=== PATIENT | female | born 1960 | race Caucasian/White ===

== ENCOUNTER 2016-04-25 07:40 | Day surgery (SDC) | payer OTHER ==
[2016-04-25 08:34] VITALS: BP 137/82; PULSE 63; RESP 16; TEMP 97.6; O2SAT 92
[2016-04-25 09:43] VITALS: BP 121/79; PULSE 98; RESP 18; TEMP 98.4; O2SAT 99
[2016-04-25] MEDS ORDERED: LIDOCAINE HCL 1% PF 30 ML VIAL ONE (09:47)
[2016-04-25 10:03] VITALS: BP 125/77; PULSE 99; RESP 18; O2SAT 95
--- NOTE | 2016-04-25 10:57 | RADRPT ---
EXAM DATE/TIME: 04/25/2016 08:19 [facility] COMPARISON: No previous studies available for comparison. EXTERNAL COMPARISON: [facility], CT ABDOMEN & PELVIS W CONTRAST, Mar 14 2016. INDICATIONS : Ascites. MEDICAL HISTORY : Arthritis. SURGICAL HISTORY : Vulvar surgery. ENCOUNTER: Initial ACUITY: 3 days PAIN SCORE: 0/10 LOCATION: Right lower quadrant FLUID: Total volume of 4200 cc of clear, yellow fluid was removed. Fluid was sent to lab for ordered studies. Post procedure scanning reveals no hematoma or other complication. TECHNIQUE: 1. Ultrasound guidance for abdominal paracentesis. 2. Paracentesis. The risks, benefits, and alternatives to ultrasound guided paracentesis were explained to the patient in detail including the risk of bleeding and infection. Written and verbal informed consent was obt ained. With the patient on the ultrasound table, ultrasound imaging was used to select the most appropriate approach for paracentesis. Overlying skin was prepped and draped in the usual sterile fashion and wi th a local anesthetic, a dermatotomy was made with an 11 blade scalpel. A 6 Portuguese [id number]-B-xiowjnzq ca theter was introduced into the peritoneal cavity and fluid was collected. The patient tolerated the procedure well and left the ultrasound suite in stable condition. CONCLUSION: Uncomplicated ultrasound guided paracentesis. Cytology and ordered studies are pending. Jose Patiño MD FACR on April 25, 2016 at 10:55 Board Certified Radiologist. This report was verified electronically.
== END 2016-04-25 10:20 | disposition home or self-care (01) ==
LOC: HRAD 07:40 → HRIP 07:43 → HRAD 10:20
PROVIDERS: ATTEND Obstetrics & Gynecology Gynecologic Oncology
DX: R18.8 Other ascites (principal); M19.90 Unspecified osteoarthritis, unspecified site
CPT/HCPCS: 49083; 88112; 88305; C1729

== ENCOUNTER 2016-05-06 08:40 | Day surgery (SDC) | payer OTHER ==
[~2016-05-06] VITALS: Ht 157.5 cm; Wt 50.0 kg
[2016-05-06 09:14] VITALS: BP 136/85; PULSE 104; RESP 20; TEMP 98.1; O2SAT 96
[2016-05-06] MEDS ORDERED: SODIUM CHLOR 0.9% 1000 ML IV SCH (10:00)
[2016-05-06 10:02] LABS: AUTOMATED NEUTROPHIL # 13.3 TH/MM3 (1.8-7.7); BASOPHIL # 0.1 TH/MM3 (0-0.2); BASOPHIL % 0.8 % (0.0-2.0); EOSINOPHIL # 0.1 TH/MM3 (0-0.4); EOSINOPHIL % 0.5 % (0.0-4.0); HEMATOCRIT 39.4 % (35.0-46.0); HEMO FLAGS DIFF FINAL; LYMPH % 12.1 % (9.0-44.0); MEAN CELL VOLUME 86.6 FL (80.0-100.0); MEAN CORPUSCULAR HEMOGLOBIN 28.8 PG (27.0-34.0); MEAN CORPUSCULAR HGB CONC 33.3 % (32.0-36.0); MONO % 7.3 % (0.0-8.0); NEUT % 79.3 % (16.0-70.0); PLATELET COUNT 892 TH/MM3 (150-450); RED BLOOD COUNT 4.55 MIL/MM3 (4.00-5.30); RED CELL DISTRIBUTION WIDTH 15.1 % (11.6-17.2); WHITE BLOOD COUNT 16.8 TH/MM3 (4.0-11.0)
[2016-05-06 10:23] LABS: APTT (PATIENT) 28.4 SEC (24.3-30.1); PROTHROMBIN TIME - PATIENT 11.3 SEC (9.8-11.6)
[2016-05-06] MEDS ORDERED: LIDOCAINE 1%/EPINEPHrine 1:100,000 SOLN 20 ML VIAL ONE (10:37)
[2016-05-06] MEDS ORDERED: MIDAZOLAM HCL 5 MG/5 ML VIAL ONE (10:52)
[2016-05-06] MEDS ORDERED: fentaNYL CITRATE 250 MCG/5 ML AMP ONE (10:52)
[2016-05-06] MEDS ORDERED: ONDANSETRON HCL 4 MG/2 ML VIAL ONE (11:10)
[2016-05-06 12:00] VITALS: BP 108/59; PULSE 91; RESP 16; TEMP 98.1; O2SAT 100
[2016-05-06 12:15] VITALS: BP 101/70; PULSE 104; RESP 16; O2SAT 92
[2016-05-06 12:45] VITALS: BP 115/69; PULSE 111; RESP 16; O2SAT 93
[2016-05-06] MEDS ORDERED: oxyCODONE/ACETAMINOPHEN 5 MG/325 MG TAB PO PRN (12:45)
[2016-05-06 13:15] VITALS: BP 104/66; PULSE 100; RESP 16; O2SAT 93
--- NOTE | 2016-05-06 13:43 | RADRPT ---
EXAM DATE/TIME: 05/06/2016 11:23 [facility] COMPARISON: No previous studies available for comparison. INDICATIONS : Omental caking SEDATION TIME: 30 minutes BIOPSY SITE: Left 0mental MEDICATION(S): 1.) 2 mg midazolam (Versed) IV 2.) 75 mcg fentanyl (Sublimaze) IV DEVICE(S): 1.) 18 gauge Temno core biopsy needle MEDICAL HISTORY : Arthritis. SURGICAL HISTORY : None. ENCOUNTER: Initial ACUITY: 2 months PAIN SCORE: 0/10 LOCATION: Abdomen A total of three core specimen(s) were obtained and sent to the laboratory for pathologic evaluation. PROCEDURE: 1. CT guided pelvicOmental biopsy. 2. Conscious sedation with continuous EKG and oximetry monitoring. Prior to the procedure informed consent was obtained. Any appropriate prior imaging studies were rev iewed. Using automated exposure control and adjustment of the mA and/or kV according to patient size, radiat ion dose was kept as low as reasonably achievable to obtain optimal diagnostic quality images. The site was prepped in a sterile fashion. Full sterile technique was used, including cap, mask, staci rile gloves and gown and a large sterile sheet. Hand hygiene and 2% chlorhexidine and/or betadine/al cohol prep was utilized per protocol for cutaneous antisepsis. The skin and subcutaneous tissues wer e infiltrated with local anesthetic solution. With CT guidance the previously identified target was localized. Biopsy was performed using the presc ribed needle as above. Adequate hemostasis was obtained with compression at the puncture site. Follow-up CT scan reveals no hemorrhage. The patient tolerated the procedure well and there were no complications. The patient was returned to the Radiology Outpatient Unit in stable condition. CONCLUSION: Uncomplicated CT guided biopsy. Niranjan Escobar MD on May 06, 2016 at 13:41 Board Certified Radiologist. This report was verified electronically.
[2016-05-06 13:45] VITALS: BP 110/69; PULSE 104; RESP 16; O2SAT 93
== END 2016-05-06 13:54 | disposition home or self-care (01) ==
LOC: HRAD 08:40 → HRIP 08:40 → HRAD 13:54
PROVIDERS: ATTEND Obstetrics & Gynecology Gynecologic Oncology
DX: R19.00 Intra-abdominal and pelvic swelling, mass and lump, unspecified site (principal); R18.8 Other ascites; M19.90 Unspecified osteoarthritis, unspecified site
CPT/HCPCS: 49180; 77012; 85025; 85610; 85730; 88305; 88341; 88342; 99151; J2250; J2405; J3010

== ENCOUNTER 2016-05-28 06:00 | Day surgery (SDC) | payer OTHER ==
[~2016-05-28] VITALS: Ht 154.9 cm; Wt 51.4 kg
[2016-05-28] MEDS ORDERED: HYDR-3516 PO (06:39)
[2016-05-28 06:43] VITALS: BP 139/88; PULSE 98; RESP 20; TEMP 98.8; O2SAT 94
[2016-05-28] MEDS ORDERED: POVIDONE IODINE 5% (ANTISEPSIS KIT) 4 APPLICATIONS EACH NARE SCH (07:30)
[2016-05-28] MEDS ORDERED: CHLORHEXIDINE GLUCONATE 2 % 1 PACK (2 CLOTHS) TOPICAL SCH (07:30)
[2016-05-28] MEDS ORDERED: VANCOMYCIN 1000 MG/NS 250 ML - implanted port/tunneled catheter IV SCH ×2 (07:30)
[2016-05-28] MEDS ORDERED: SODIUM CHLORIDE 0.9% 1000 ML IV SCH (07:30)
[2016-05-28] MEDS ORDERED: MIDAZOLAM HCL 5 MG/5 ML VIAL ONE (07:59)
[2016-05-28] MEDS ORDERED: fentaNYL CITRATE 250 MCG/5 ML AMP ONE (07:59)
[2016-05-28] MEDS ORDERED: ONDANSETRON HCL 4 MG/2 ML VIAL ONE (08:09)
[2016-05-28] MEDS ORDERED: LIDOCAINE 1%/EPINEPHrine 1:100,000 SOLN 20 ML VIAL ONE (08:20)
[2016-05-28 09:30] VITALS: BP 111/70; PULSE 100; RESP 18; TEMP 98.4; O2SAT 92
--- NOTE | 2016-05-28 09:31 | PD.RAD ---
Post Procedure Progress Note Pre Procedure Diagnosis: (1) Ovarian cancer Post Procedure Diagnosis: (1) Ovarian cancer Procedure Date: May 28, 2016 Supervising Radiologist: Brian Tran Anesthesia: Local, Conscious Sedation Plan of Activity Patient to Unit: ROPU Patient Condition: Good See PACS Report for procedural detail/treatment Central Venous Access Device Procedure 1 Right Internal Jugular Infusaport Placement single lumen Israeli: 8 Brian Tran MD May 28, 2016 09:31
[2016-05-28 09:45] VITALS: BP 111/80; PULSE 107; RESP 19; O2SAT 95
--- NOTE | 2016-05-28 10:08 | RADRPT ---
EXAM DATE/TIME: 05/28/2016 08:22 [facility] COMPARISON: No previous studies available for comparison. INDICATIONS : Patient presents with ovarian cancer in need of port placement for chemotherapy treatment. MEDICAL HISTORY : Ovarian cancer SURGICAL HISTORY : Paracentesis Veurial wart removal ENCOUNTER: Initial ACUITY: 1 week PAIN SCORE: 7/10 LOCATION: Inguinal FLUORO TIME: 0.3 minutes IMAGE SERIES: 1 SEDATION TIME: 45 minutes ACCESS: Right internal jugular vein SEDATION: 1.) 4 mg midazolam (Versed) IV 2.) 200 mcg fentanyl (Sublimaze) IV 3.) 4mg ondansetron (Zofran) IV Prophylactic antibiotics were administered with appropriate pre-procedure timing. Vancomycin within 2 hours of procedure, Ancef (or alternative) within 1 hour of procedure. DEVICE: 1. 8 And[place]ran single lumen Bard Power Port PROCEDURE : 1. Continuous pulse oximetry and EKG monitoring. 2. Intravenous conscious sedation. 3. Ultrasound guidance for venous access. 4. Fluoroscopic guided implantable central venous port placement. The patient was placed supine. The neck was prepped in sterile fashion. Full sterile technique was u sed, including cap, mask, sterile gloves and gown, and a large sterile sheet. Hand hygiene and 2% ch lorhexidine Betadine was utilized per protocol for cutaneous antisepsis with appropriate dry time for site. The skin and subcutaneous tissues were infiltrated with local anesthetic solution. Under direct ultrasound guidance, central venous access was accomplished in the targeted vessel. The ultrasound images depicting access guidance were stored and saved to PACS for permanent record. A s ubcutaneous pocket was created using blunt dissection. The port was introduced to the pocket. The c atheter tubing was fed through a subcutaneous tunnel to the venotomy site. The catheter tubing was c ut to a suitable length and then was introduced through a valved Peel-Away sheath and positioned with catheter tubing tip at the cavo-atrial junction level. The pocket incision was closed with subcutic ular Vicryl suture. Steri-Strips were applied. The port was flushed and locked with heparin solutio n per protocol. Sterile dressing was applied to the site. The patient tolerated the procedure well. Conscious sedation was performed with the prescribed dosages and duration as above in the presence of an independent trained radiology nurse to assist in the monitoring of the patient. EKG and oximetry remained stable throughout the procedure. The patient tolerated the procedure well and there were no complications. The patient was sent to post anesthesia recovery in stable condition. CONCLUSION: Uncomplicated ultrasound and fluoroscopic guided implanted central venous port catheter placement as described in detail above. An 8 Andorran Power port was placed. Brian Tran MD on May 28, 2016 at 10:06 Board Certified Radiologist. This report was verified electronically.
[2016-05-28 10:15] VITALS: BP 115/71; PULSE 97; RESP 18; O2SAT 97
[2016-05-28 10:45] VITALS: BP 114/70; PULSE 106; RESP 19; O2SAT 96
== END 2016-05-28 11:20 | disposition home or self-care (01) ==
LOC: HROP 06:00 → HRIP 06:00 → HROP 11:20
PROVIDERS: ATTEND Obstetrics & Gynecology Gynecologic Oncology
DX: Z45.2 Encounter for adjustment and management of vascular access device (principal); C56.9 Malignant neoplasm of unspecified ovary
CPT/HCPCS: 36561; 76937; 77001; 99152; 99153; C1788; J1642; J2250; J2405; J3010; J3370; J7030; J7050

== ENCOUNTER 2016-06-09 07:28 | Day surgery (SDC) | payer OTHER ==
[~2016-06-09 07:28] MED LIST: HYDR-3516 PO
[2016-06-09 08:12] VITALS: BP 123/82; PULSE 95; RESP 14; TEMP 97.2; O2SAT 96
[2016-06-09] MEDS ORDERED: ADDE10 PO (08:17)
[2016-06-09] MEDS ORDERED: MULT-135 PO (08:17)
[2016-06-09 10:15] VITALS: BP 109/74; PULSE 93; RESP 16; TEMP 98.4; O2SAT 97
[2016-06-09 10:30] VITALS: BP 115/64; PULSE 96; RESP 16; O2SAT 97
[2016-06-09 10:45] VITALS: BP 114/69; PULSE 97; RESP 16; O2SAT 96
--- NOTE | 2016-06-09 15:27 | RADRPT ---
EXAM DATE/TIME: 06/09/2016 08:20 [facility] COMPARISON: No previous studies available for comparison. INDICATIONS : Ascites. Ovarian cancer. MEDICAL HISTORY : Paracentesis. Adenocarcinoma. SURGICAL HISTORY : Port placement. Omentum biopsy. ENCOUNTER: Subsequent ACUITY: 2 months PAIN SCORE: 0/10 LOCATION: Left lower quadrant FLUID: Total volume of 2,900 cc of clear, red fluid was removed. Fluid was discarded. Paracentesis was therapeutic only. Post procedure scanning reveals no hematoma or other complication. TECHNIQUE: 1. Ultrasound guidance for abdominal paracentesis. 2. Paracentesis. The risks, benefits, and alternatives to ultrasound guided paracentesis were explained to the patient in detail including the risk of bleeding and infection. Written and verbal informed consent was obt ained. With the patient on the ultrasound table, ultrasound imaging was used to select the most appropriate approach for paracentesis. Overlying skin was prepped and draped in the usual sterile fashion and wi th a local anesthetic, a dermatotomy was made with an 11 blade scalpel. A 6 Icelandic Fhu-K-jwnexich ca theter was introduced into the peritoneal cavity and fluid was collected. The patient tolerated the procedure well and left the ultrasound suite in stable condition. CONCLUSION: Uncomplicated ultrasound guided paracentesis. Oscar Yin MD on June 09, 2016 at 15:25 Board Certified Radiologist. This report was verified electronically.
== END 2016-06-09 11:00 | disposition home or self-care (01) ==
LOC: HRAD 07:28 → HRIP 07:32 → HRAD 11:00
PROVIDERS: ATTEND Obstetrics & Gynecology Gynecologic Oncology
DX: R18.8 Other ascites (principal); C56.9 Malignant neoplasm of unspecified ovary
CPT/HCPCS: 49083; C1729

== ENCOUNTER 2016-06-17 07:38 | Day surgery (SDC) | payer OTHER ==
[~2016-06-17 07:38] MED LIST changes: +ADDE10 PO; +MULT-135 PO
[2016-06-17 08:09] VITALS: BP 106/67; PULSE 106; RESP 14; TEMP 97.3; O2SAT 97
[2016-06-17 09:10] VITALS: BP 120/73; PULSE 93; RESP 16; TEMP 98.3; O2SAT 97
[2016-06-17 09:25] VITALS: BP 118/73; PULSE 93; RESP 16; O2SAT 97
[2016-06-17 09:40] VITALS: BP 122/75; PULSE 93; RESP 16; O2SAT 97
--- NOTE | 2016-06-17 13:02 | RADRPT ---
EXAM DATE/TIME: 06/17/2016 08:15 [facility] COMPARISON: No previous studies available for comparison. EXTERNAL COMPARISON: [facility], CT ABDOMEN & PELVIS W CONTRAST, Mar 14 2016. INDICATIONS : Ascites. Ovarian cancer. MEDICAL HISTORY : Carcinoma, ovarian. Ascites. Adenocarcinoma. SURGICAL HISTORY : Venirial warts removal. Pilonidal cyst. Paracentesis. Port placement. Omentum biopsy. ENCOUNTER: Subsequent ACUITY: 1 week PAIN SCORE: 10/10 LOCATION: Right lower quadrant FLUID: Total volume of 2,000 cc of clear, red fluid was removed. Fluid was discarded. Paracentesis was therapeutic only. Post procedure scanning reveals no hematoma or other complication. TECHNIQUE: 1. Ultrasound guidance for abdominal paracentesis. 2. Paracentesis. The risks, benefits, and alternatives to ultrasound guided paracentesis were explained to the patient in detail including the risk of bleeding and infection. Written and verbal informed consent was obt ained. With the patient on the ultrasound table, ultrasound imaging was used to select the most appropriate approach for paracentesis. Overlying skin was prepped and draped in the usual sterile fashion and wi th a local anesthetic, a dermatotomy was made with an 11 blade scalpel. A 6 Haitian Ogl-X-pbeetiaq ca theter was introduced into the peritoneal cavity and fluid was collected. The patient tolerated the procedure well and left the ultrasound suite in stable condition. CONCLUSION: Uncomplicated ultrasound guided paracentesis. Oscar Yin MD on June 17, 2016 at 13:00 Board Certified Radiologist. This report was verified electronically.
== END 2016-06-17 09:45 | disposition home or self-care (01) ==
LOC: HRAD 07:38 → HRIP 07:38 → HRAD 09:45
PROVIDERS: ATTEND Obstetrics & Gynecology Gynecologic Oncology
DX: R18.8 Other ascites (principal); C56.9 Malignant neoplasm of unspecified ovary
CPT/HCPCS: 49083; C1729

== ENCOUNTER 2016-09-23 15:16 | Observation (INO) | payer OTHER ==
[~2016-09-23] VITALS: Ht 154.9 cm; Wt 56.4 kg
[~2016-09-23 15:16] MED LIST changes: -ADDE10 PO; -MULT-135 PO
[2016-10-03] MEDS ORDERED: VITACAP7 PO (13:25)
[2016-10-23] MEDS ORDERED: SODIUM CHLORIDE FLUSH PRN IV FLUSH (05:45)
[2016-10-23] MEDS ORDERED: HEPARIN SODIUM - SQ 10,000 UNITS/ML VIAL SQ PRN (05:45)
[2016-10-23] MEDS ORDERED: POVIDONE IODINE 5% (ANTISEPSIS KIT) 4 APPLICATIONS EACH NARE PRN (05:45)
[2016-10-23] MEDS ORDERED: LACTATED RINGER'S 1000 ML IV PRN (05:45)
[2016-10-23] MEDS ORDERED: METOPROLOL TARTRATE 25 MG TAB PO PRN (05:45)
[2016-10-23] MEDS ORDERED: METRONIDAZOLE 500 MG/100 ML ISONTONIC SOLN IV PRN (05:45)
[2016-10-23] MEDS ORDERED: SODIUM CHLORID 0.9% 500 ML IV PRN (05:45)
[2016-10-23] MEDS ORDERED: CHLORHEXIDINE GLUCONATE 2 % 1 PACK (2 CLOTHS) TOPICAL PRN (05:45)
[2016-10-23] MEDS ORDERED: INSULIN HUMAN REGULAR 1,000 UNITS/10 ML VIAL SQ PRN (05:45)
[2016-10-23] MEDS ORDERED: LEVOFLOXACIN 500 MG PREMIX INJ 100 ML IV PRN (05:45)
[2016-10-23] MEDS ORDERED: APREPITANT 40 MG CAP ONE (06:40)
[2016-10-23] MEDS ORDERED: SUGAMMADEX SODIUM 200 MG/2 ML VIAL IV PUSH ONE ×2 (08:02)
[2016-10-23] MEDS ORDERED: ACETAMINOPHEN 1000 MG/100 ML 100 ML IV ONE (08:02)
[2016-10-23] MEDS ORDERED: HYDROmorphone HCL PF 2 MG/ML VIAL ONE (08:02)
[2016-10-23] MEDS ORDERED: ARTIFICIAL TEARS OPTH OINT 3.5 APPLIC/3.5 GM TUBO ONE (08:03)
[2016-10-23] MEDS ORDERED: SODIUM CHLORIDE FLUSH BID IV FLUSH SCH (09:00)
[2016-10-23] MEDS ORDERED: FAMOTIDINE 20 MG/2 ML VIAL ONE (09:02)
[2016-10-23] MEDS: LIDOCAINE 1%/EPINEPHrine 1:100,000 SOLN 50 ML VIAL INFIL ONE ×2 (09:05→09:09)
[2016-10-23] MEDS ORDERED: LIDOCAINE 1%/EPINEPHrine 1:100,000 SOLN 20 ML VIAL INFIL ONE (09:14)
[2016-10-23] MEDS ORDERED: PROPOFOL 200 MG/20 ML AMP IV ONE (12:00)
[2016-10-23] MEDS ORDERED: NORMOSOL R INJ 1,000 ML IV ONE (12:00)
[2016-10-23] MEDS ORDERED: ONDANSETRON HCL 4 MG/2 ML VIAL IV PUSH ONE (12:00)
[2016-10-23] MEDS ORDERED: PHENYLEPH/NS 1000 MCG/10 ML SYR IV ONE (12:00)
[2016-10-23] MEDS ORDERED: HYDROmorphone HCL PF 1 MG/ML VIAL IV ONE (12:00)
[2016-10-23] MEDS ORDERED: KETOROLAC TROMETHAMINE 60 MG/2 ML (IM) VIAL IM ONE (12:00)
[2016-10-23] MEDS ORDERED: VECURONIUM BROMIDE 20 MG VIAL IV ONE (12:00)
[2016-10-23] MEDS ORDERED: SODIUM CHLORIDE 0.9% FLUSH 10 ML FLUSH IV FLUSH PRN (12:45)
[2016-10-23] MEDS ORDERED: diphenhydrAMINE HCL 25 MG CAP PO PRN (12:45)
[2016-10-23] MEDS ORDERED: oxyCODONE/ACETAMINOPHEN 5 MG/325 MG TAB PO PRN (12:45)
[2016-10-23] MEDS ORDERED: LORazepam 0.5 MG TAB PO PRN (12:45)
[2016-10-23] MEDS: D5-1/2 NS + KCL 20 MEQ INJ 1,000 ML IV SCH ×2 (13:00→22:25)
[2016-10-23] MEDS ORDERED: *morphine SULFATE 8 MG/ML PERIprocedure ONLY ONE ×2 (13:08→13:52)
[2016-10-23] MEDS ORDERED: DO NOT ADM ANY ANTICOAGULANT DRUGS PRN (14:00)
[2016-10-23] MEDS ORDERED: KETOROLAC TROMETHAMINE 30 MG/ML (IVP) VIAL IVP SCH (14:00)
[2016-10-23 16:06] VITALS: BP 121/65; PULSE 84; RESP 17; TEMP 97.6; O2SAT 98
[2016-10-23] MEDS: ONDANSETRON HCL 4 MG/2 ML VIAL IVP PRN ×2 (16:28→22:25)
[2016-10-23] MEDS: KETOROLAC TROMETHAMINE 30 MG/ML (IVP) VIAL IVP SCH (16:44)
[2016-10-23] MEDS: oxyCODONE/ACETAMINOPHEN 5 MG/325 MG TAB PO PRN (18:44)
[2016-10-23 20:43] VITALS: BP 111/59; PULSE 85; RESP 18; TEMP 97.6; O2SAT 98
[2016-10-23] MEDS ORDERED: SODIUM CHLORIDE 0.9% FLUSH 10 ML FLUSH IV FLUSH SCH (21:00)
[2016-10-24] VITALS: BP 97/53; PULSE 79; RESP 16; TEMP 96.9; O2SAT 96
[2016-10-24 01:25] VITALS: O2SAT 95
[2016-10-24 04:43] VITALS: BP 102/59; PULSE 85; RESP 18; TEMP 97.2; O2SAT 97
[2016-10-24] MEDS: KETOROLAC TROMETHAMINE 30 MG/ML (IVP) VIAL IVP SCH ×3 (04:56→09:57)
[2016-10-24] MEDS: oxyCODONE/ACETAMINOPHEN 5 MG/325 MG TAB PO PRN ×2 (05:02→09:53)
[2016-10-24] MEDS ORDERED: HYDR-3516 PO (07:04)
[2016-10-24 07:18] LABS: AUTOMATED NEUTROPHIL # 8.5 TH/MM3 (1.8-7.7); BASOPHIL % 0.1 % (0.0-2.0); EOSINOPHIL % 0.1 % (0.0-4.0); HEMATOCRIT 34.7 % (35.0-46.0); HEMO FLAGS DIFF FINAL; LYMPH % 18.1 % (9.0-44.0); LYMPHOCYTE # 2.2 TH/MM3 (1.0-4.8); MEAN CORPUSCULAR HEMOGLOBIN 35.6 PG (27.0-34.0); MEAN CORPUSCULAR HGB CONC 33.9 % (32.0-36.0); MONO % 12.2 % (0.0-8.0); NEUT % 69.5 % (16.0-70.0); PLATELET COUNT 367 TH/MM3 (150-450); RED BLOOD COUNT 3.31 MIL/MM3 (4.00-5.30); RED CELL DISTRIBUTION WIDTH 15.5 % (11.6-17.2); WHITE BLOOD COUNT 12.2 TH/MM3 (4.0-11.0)
[2016-10-24 07:36] LABS: BICARBONATE 25.9 MEQ/L (21.0-32.0); POTASSIUM 3.8 MEQ/L (3.5-5.1)
[2016-10-24 08:00] VITALS: BP 109/65; PULSE 79; RESP 18; TEMP 98.1; O2SAT 98
[2016-10-24 11:06] VITALS: O2SAT 99
--- NOTE | 2016-10-25 18:48 | MP ---
cc: BE FOX M.D., KELLY L. MD DATE OF SURGERY 10/23/2016 PREOPERATIVE DIAGNOSIS 1. Ovarian cancer. 2. Status post neoadjuvant chemotherapy. POSTOPERATIVE DIAGNOSIS 1. Ovarian cancer. 2. Status post neoadjuvant chemotherapy. 3. Extensive intraperitoneal and pelvic adhesions. PROCEDURE Robotic-assisted laparoscopic En Bloc hysterectomy. Bilateral salpingo-oophorectomy, omentectomy, partial resection the gastrocolic ligament and tumor resection with a right ureteral lysis, resection of intraperitoneal tumor nodules, extensive lysis of adhesions. Left vulvar biopsy. SURGEON Sabrina Rene. BEAR KEEPER [place] assistant to the vice president. ANESTHESIA General endotracheal anesthesia. ESTIMATED BLOOD LOSS 100 cc. IV FLUIDS 1800 cc. URINE OUTPUT 300 cc. HISTORY This is a 56-year-old female who presented with extensive carcinomatosis, ascites. CA-125 elevated, greater than 9000. Biopsy confirmed adenocarcinoma of ovarian origin. She has completed neoadjuvant chemotherapy. Her CA-125 has dramatically responded consistent with the clinical improvement as the ascites has resolved. There has been a marked reduction in the palpable disease on physical examination. Her symptoms have improved and her most recent CA-125 I believe was approximately 29. She was seen recently in our office and seen again in the preop holding area today where findings are reviewed, the plan of surgical intervention is discussed. It is anticipated that there will still be measurable disease that is the focus of surgery, although, she has had a dramatic response to treatment. I am pleased with how well she is doing. The realistic expectation is that there will be persistent disease which will be removed to the extent possible at surgery and after she recovers from surgery additional chemotherapy would be recommended. She expressed good understanding and agreed to proceed. FINDINGS There had been a good and detectable response to chemotherapy. There are multiple filmy bands of adhesions that were suggestive of prior tumor that had responded. There were small miliary tumor implants on the visceral and ___ peritoneal surfaces and areas showing previous tumor that had responded. There still remained grossly visible tumor in the infracolic omentum as well as in the gastrocolic ligament. The distal omentum was fixed in the pelvis, adherent to the uterus and to the colon. The right ovary was approximately 6 cm in size, was densely adherent to the right pelvic sidewall, partially retroperitonealized. The ureter was densely adherent to the posterior lateral aspect of the ovary fixed between the ovary and the pelvic sidewall. The left ovary was also fixed to the pelvic sidewall, was only approximately 3 cm. The colon was densely adherent to the left pelvic sidewall, draped over the ovary and fixed through the posterior wall of the uterus with partial obliteration of the cul-de-sac. At the conclusion of the case all significant tumor had been removed, what remained were implants of tumor on the bowel or the liver surface ranging from 1 to 4 mm that were not thought safely amenable to resection but that all significant grossly visible tumor otherwise had been resected. The majority of the tumor burden was in the infracolic omentum, gastrocolic ligament and right ovary. A 2 cm pigmented slightly raised area on the right vulva. STATEMENT OF COMPLEXITY The complexity of the case was increased, a significant amount of time was spent lysing adhesions to restore normal anatomy and to accomplish surgical objectives, increasing the complexity of the case and modifier should be applied accordingly. PROCEDURE IN DETAIL She was taken to the operating room placed in dorsal lithotomy position after general endotracheal anesthesia was administered, time-out was undertaken. She was identified by sight recognition, hospital ID bracelet and the proposed procedure was reviewed and confirmed. She was carefully positioned in padded Juni stirrups. Her arms were padded and secured to the sides. She was further secured to the operating table with egg crate padding and tape in a cross chest over the shoulder fashion. All sites were noted to be properly aligned with no malalignments or pressure points. She was prepped and draped in sterile fashion, placed in lithotomy position. The cervix was grasped, uterine cavity was sounded, cervix was dilated and a small VCare manipulator was inserted and secured usual fashion. Shafer catheter placed in the bladder. She was returned to low lithotomy position, change of sterile gloves was undertaken. We completed draping in anticipation of laparoscopy, confirmed that an orogastric tube was in the stomach on suction. With manual elevation of the abdominal wall and direct laparoscopic visualization 5 mm cannula placed in the left upper quadrant and an atraumatic entry was confirmed. Carbon dioxide gas was insufflated and 12 mm cannula was placed in midline above the umbilicus and blunt and sharp dissection was used to take down some adhesions as a 12-mm cannula was placed in the right upper quadrant and an 8-mm cannula was placed in right upper quadrant, another 8 mm cannula in the left lateral quadrant and the original 5-mm cannula exchanged for an 8-mm cannula. The anatomy was surveyed with findings as described above as the distal omentum was stuck in the pelvis, she was placed in steep Trendelenburg position and blunt grasper used to fold the small bowel back on its mesenteric root and three Ray-Herb sponges were placed around the root of the small bowel mesentery. The adhesions were left in place initially to help facilitate dissection of the omentum. The robotic system brought into the operative field, attached in the usual fashion. Monopolar scissors, fenestrated bipolar forceps and Prograsp manipulators were placed in arms #1, 2 and 3 respectively and I took my place at the surgeon's console. Dissection was started near the hepatic flexure. The transverse colon was identified. Nonvascular attachments were taken down with sharp dissection. The vascular attachments between the transverse colon and the omentum were isolated, cauterized with bipolar cautery and transected. This dissection was carried along the transverse colon medially and then attention was directed towards the left upper quadrant. There is tumor that extended into the gastrocolic ligament and so the nonvascular attachments were isolated and the vascular attachments below the greater curvature of the stomach were isolated, cauterized and transected in a stepwise fashion and then dissection was continued toward the transverse colon where similarly the vascular pedicles were isolated, cauterized and transected as the gastrocolic ligament and the infracolic omentum were from the stomach and transverse colon. Dissection was completed centrally, dissecting the omentum off of the transverse colon. All sites were inspected, noted to be hemostatic. Attention was now directed toward the pelvis. The distal omentum was left adherent to the uterus but lysis of adhesion was carried out to free the omentum from its attachments to the colon. Sharp and blunt dissection were used to help gain access to the pelvis to mobilize the ileocecal region and to initiate pelvic dissection. Right round ligament was isolated, cauterized and transected as the anterior and posterior leafs of the broad ligament were opened. The right infundibulopelvic ligament was isolated. The ureter was noted to be densely adherent to the right ovarian mass as described above and so blunt and sharp dissection was used to free the ureter along its course in the pelvis to perform ureterolysis along its course in the pelvis and free it from the attachments of the tumor and similarly blunt and sharp dissection was used to free the ovary from its retroperitonealized fixed position and to elevate it as dissection was carried from proximal to distal with continued dissection in the cul-de-sac until the ovary could be elevated, from surrounding tissue, isolating the right utero-ovarian ligament. Further dissection distally allowed separation of the ureter from surrounding tissue. The posterior peritoneum on the uterus and cervix were opened with sharp dissection and posterior cul-de-sac adhesions were taken down and the right vesicouterine peritoneum was dissected off the lower uterine segment and cervix. Further dissection allowed skeletonization of the right uterine vessels which were isolated, cauterized and transected as were the cardinal, paracervical and uterosacral ligaments. The paravesical, pararectal spaces and obturator spaces were opened. There was a single enlarged lymph node approximately 2-2.5 cm in diameter in the region of the bifurcation of the external and internal iliac vessels. This lymph node was isolated with bipolar cautery and sharp dissection circumferentially freeing attachments, cauterizing small vascular attachments, circumferentially peeling the lymph node off of the external iliac vein and freeing up this lymph node which was placed on a Ray-Herb sponge and the right lower quadrant for later retrieval. Attention was directed toward the left side. Additional time was spent lysing adhesions to mobilize the colon, free its attachments from against the left pelvic sidewall and overlying the left pelvic sidewall structures and to free the adhesions from the cul-de-sac to mobilize the colon medially to gain access to the left pelvic sidewall. Left round ligament was isolated, cauterized, transected. The anterior and posterior leafs of the broad ligament were opened. Retroperitoneal dissection was carried out. A window in the peritoneum was made just below the left utero-ovarian ligament and dissection of the infundibulopelvic ligament was carried out from distal to proximal elevating the gonadal vessels and thereby retracting and pushing the ureter posteriorly. The infundibulopelvic ligament was isolated to the level of the pelvic brim where it was cauterized and transected. Posterior peritoneum was further opened along the left side of the uterus and cervix. The left vesicouterine peritoneum was dissected off the lower uterine segment and cervix and the left uterine vessels were skeletonized. Left uterine vessels were cauterized, transected as were the cardinal, paracervical and uterosacral ligaments. Colpotomy was performed the cervix from the upper vagina. The specimen was withdrawn transvaginally which included En Bloc specimen of the uterus, cervix, bilateral tubes and ovaries, omentum and gastrocolic ligament. All containing tumor. This was delivered transvaginally and a pneumo-occluder balloon was placed in the vagina to maintain pneumoperitoneum. Sharp dissection and focal cautery were used to resect the intraperitoneal nodules that were visible on the peritoneal surfaces from the omentum. The nodules that were directly involving the bowel wall or the surface of the liver were within the range of 1-4 mm that were not felt amenable to surgical resection but it was felt that all significant tumor had been satisfactorily reduced by chemotherapy and/or surgical resection. It was felt that all reasonable surgical objectives had been completed so a 12 cm EndoCatch bag was introduced transvaginally and the Ray-Herb sponge containing the right pelvic lymph node and intraperitoneal nodules were placed in that bag and delivered transvaginally. Each of the two remaining Ray-Herb sponges were then delivered transvaginally using a ring forceps. All Ray-Tecs were inspected and noted to be removed in their entirety. All specimens had been removed. All sites appeared hemostatic and attention was directed toward closing the vaginal cuff. Instruments 1 and 3 exchanged for needle drivers as a 0 Vicryl suture was introduced. Vaginal cuff was closed starting at the left corner, full-thickness closure incorporating the edge of the uterosacral ligament and posterior peritoneum tied via instrument tie. Suture was held on countertraction as a running continuous full-thickness closure was carried across the vaginal cuff to the contralateral corner where it similarly fixed, secured, tied via instrument tie. The needle was cut and removed. The pelvis, abdomen thoroughly irrigated. All sites noted to be hemostatic. Good peristalsis of ureters bilaterally. Tumor cytoreduced as described. No remaining foreign objects in the peritoneal cavity. Preliminary counts were correct. Robotic instruments were removed. The robotic system was disengaged from the operative field. I reentered the bedside under sterile condition. The 12 mm fascial defect was closed with interrupted 0 Vicryl sutures using a needle pass apparatus under direct laparoscopic visualization. They were tied securely which rendered the fascia completely airtight and hemostatic. The remaining cannulas were withdrawn. Carbon dioxide gas was removed. 3-0 Vicryl subcutaneous, 3-0 Vicryl subcuticular and Steri-Strips used to close these incisions. She was returned to dorsal lithotomy position. Pelvic exam confirmed that the vaginal cuff was well-supported. There was no bleeding. No vaginal lacerations. No remaining foreign objects in the vagina. Final counts were correct. She was returned to dorsal supine position and was pending reversal of anesthesia when I left the operating room to precede her to the Post Anesthesia Care Unit. MD DANILO Montez/ANSON /1:15 PM /6:04 PM
--- NOTE | 2016-10-29 07:35 | MD ---
cc: BE FOX M.D., KELLY L. MD ADMISSION DATE: 10/23/2016 DISCHARGE DATE: 10/24/2016 PROCEDURE 10/23/2016 - Robotic-assisted laparoscopic en bloc hysterectomy, bilateral salpingo-oophorectomy, omentectomy, resection of gastrocolic ligament for debulking of ovarian cancer, right ureterolysis, right pelvic lymph node dissection, resection of intraperitoneal nodules. HOSPITAL COURSE She has done well during early postop period. There had been a good response to neoadjuvant chemotherapy and her surgery went well. She is tolerating oral intake. She is hemodynamically stable, adequate pain control. In's and out's [id number]. Labs are pending. PHYSICAL EXAMINATION VITAL SIGNS: Afebrile, pulse 79-85, respirations 16-18, blood pressure 97-111 over 53-59, O2 saturations greater than or equal to 96%. GENERAL: Alert and oriented x3. LUNGS: Clear to auscultation except for mild basilar rales. CARDIOVASCULAR: Regular rate and rhythm. ABDOMEN: Soft. Incision is clean and dry. WELL SERVICES OPERATOR: No bleeding. EXTREMITIES: Nontender. ASSESSMENT Postop day #1 doing well in early postop period. Preliminary findings - Response to chemotherapy. Steps taken at surgery are reviewed. Activities and restrictions are discussed. Questions were answered. She expressed good understanding. PLAN 1. Anticipate she will meet criteria for discharge to home today. 2. She will have a prescription for Percocet. She takes no other prescription medications, just vitamin supplements. 3. Our office number is again made available. She is to contact us to schedule followup in two weeks or to contact us sooner should she have any questions or problems. MD DANILO Montez/SHAWN /7:05 AM /7:19 AM
== END 2016-10-24 11:57 | disposition home or self-care (01) ==
LOC: HSDI 10-23 05:11 → INTOOBSV 10-23 05:11 → HOCB 10-23 15:36
PROVIDERS: ADMIT Obstetrics & Gynecology Gynecologic Oncology; ATTEND Obstetrics & Gynecology Gynecologic Oncology
DX: C56.1 Malignant neoplasm of right ovary (principal); C56.2 Malignant neoplasm of left ovary; C77.5 Secondary and unspecified malignant neoplasm of intrapelvic lymph nodes; R18.8 Other ascites; N73.6 Female pelvic peritoneal adhesions (postinfective); Z92.21 Personal history of antineoplastic chemotherapy
CPT/HCPCS: 00840; 38570; 49255; 56605; 58572; 80048; 85025; 86850; 86900; 86901; 88305; 88307; 94150; G0378; J0131; J1170; J1644; J1885; J1956; J2270; J2370; J2405; J3010; J3480; J7120; J8501

== ENCOUNTER → 2016-10-03 | Outpatient (CLI) | payer OTHER ==
[~2016-10-03] MED LIST changes: +ADDE10 PO; +MULT-135 PO; +VITACAP7 PO
--- NOTE | 2016-10-03 14:40 | RADRPT ---
EXAM DATE/TIME: 10/03/2016 13:46 [facility] COMPARISON: No previous studies available for comparison. INDICATIONS : Evaluate for pneumonia, pneumothorax or communicable disease. Preop chest for hysterectomy on 10/20/16 MEDICAL HISTORY : ovarian carcinoma SURGICAL HISTORY : None. ENCOUNTER: Initial ACUITY: 1 day PAIN SCORE: 0/10 LOCATION: Bilateral chest FINDINGS: PA and lateral views of the chest demonstrate the lungs to be symmetrically aerated without evidence of mass, infiltrate or effusion. Right IJ [id number] in good position. The cardiomediastinal cont ours are unremarkable. Osseous structures are intact. CONCLUSION: 1. No acute cardiopulmonary disease. Juve Hanson MD on October 03, 2016 at 14:38 Board Certified Radiologist. This report was verified electronically.
--- NOTE | 2016-10-07 13:05 | EKG ---
Date Performed: 10/03/2016 Time Performed: 13:36:11 PTAGE: 56 years EKG: Sinus rhythm NORMAL ECG NO PREVIOUS TRACING DOCTOR: Elba Bartlett Interpretating Date/Time 10/07/2016 13:04:36
== END ==
LOC: CPRE 12:38
PROVIDERS: ATTEND Obstetrics & Gynecology Gynecologic Oncology
DX: Z01.810 Encounter for preprocedural cardiovascular examination (principal); Z01.812 Encounter for preprocedural laboratory examination; C56.9 Malignant neoplasm of unspecified ovary
CPT/HCPCS: 71020; 93005

== ENCOUNTER 2017-02-25 08:29 | Day surgery (SDC) | payer OTHER ==
[~2017-02-25 08:29] MED LIST changes: -ADDE10 PO; -MULT-135 PO
[2017-02-25 08:45] LABS: AUTOMATED NEUTROPHIL # 14.7 TH/MM3 (1.8-7.7); BASOPHIL # 0.1 TH/MM3 (0-0.2); BASOPHIL % 0.6 % (0.0-2.0); EOSINOPHIL % 0.2 % (0.0-4.0); HEMATOCRIT 33.3 % (35.0-46.0); HEMOGLOBIN 11.5 GM/DL (11.6-15.3); LYMPH % 11.2 % (9.0-44.0); LYMPHOCYTE # 2.1 TH/MM3 (1.0-4.8); MEAN CELL VOLUME 98.8 FL (80.0-100.0); MEAN CORPUSCULAR HEMOGLOBIN 34.3 PG (27.0-34.0); MEAN CORPUSCULAR HGB CONC 34.7 % (32.0-36.0); MEAN PLATELET VOLUME 7.2 FL (7.0-11.0); MONO % 9.9 % (0.0-8.0); MONOCYTE # 1.9 TH/MM3 (0-0.9); NEUT % 78.1 % (16.0-70.0); PLATELET COUNT 714 TH/MM3 (150-450); RED BLOOD COUNT 3.37 MIL/MM3 (4.00-5.30); RED CELL DISTRIBUTION WIDTH 18.2 % (11.6-17.2); WHITE BLOOD COUNT 18.8 TH/MM3 (4.0-11.0)
[2017-02-25 08:53] LABS: INTERNATIONAL NORMALIZED RATIO 1.1 RATIO; PROTHROMBIN TIME - PATIENT 10.7 SEC (9.8-11.6)
--- NOTE | 2017-02-25 09:47 | PD.RAD ---
Post US Procedure Prog Note Pre Procedure Diagnosis: (1) Ovarian cancer (2) Ascites Post Procedure Diagnosis: (1) Ascites Procedure Date: Feb 25, 2017 Supervising Radiologist: Harvey Galvan Estimated blood loss: minimal Anesthesia: Local Plan of Activity Patient to Unit: ROPU Patient Condition: Good See PACS Report for procedural detail/treatment Drainage Procedure Procedure 1 Imaging Guidance: Ultrasound Side: Right Procedure Type: Paracentesis Fluid Removal (CCs): 3800 Fluid Description: Clear, Yellow Plan to ROPU then discharge. Harvey Galvan MD Feb 25, 2017 09:47
[2017-02-25 10:15] VITALS: BP 124/79; PULSE 102; RESP 18; TEMP 98.4; O2SAT 92
[2017-02-25 10:30] VITALS: BP 116/74; PULSE 103; RESP 17; O2SAT 94
--- NOTE | 2017-02-25 13:15 | RADRPT ---
EXAM DATE/TIME: 02/25/2017 09:14 [facility] COMPARISON: US GUIDED ABD PARACENTESIS, June 17, 2016, 8:15. INDICATIONS : Ascites. MEDICAL HISTORY : Ovarian cancer. SURGICAL HISTORY : Chemotherapy. Paracentesis. ENCOUNTER: Initial ACUITY: 1 day PAIN SCORE: 2/10 LOCATION: Right lower quadrant FLUID: Total volume of 3800 cc of ja. fluid was removed. Fluid was discarded. Paracentesis was therapeutic only. Post procedure scanning reveals no hematoma or other complication. TECHNIQUE: 1. Ultrasound guidance for abdominal paracentesis. 2. Paracentesis. The risks, benefits, and alternatives to ultrasound guided paracentesis were explained to the patient in detail including the risk of bleeding and infection. Written and verbal informed consent was obt ained. With the patient on the ultrasound table, ultrasound imaging was used to select the most appropriate approach for paracentesis. Overlying skin was prepped and draped in the usual sterile fashion and wi th a local anesthetic, a dermatotomy was made with an 11 blade scalpel. A 6 Hebrew Rqe-Y-shlomsal ca theter was introduced into the peritoneal cavity and fluid was collected. The patient tolerated the procedure well and left the ultrasound suite in stable condition. CONCLUSION: Uncomplicated ultrasound guided paracentesis. Harvey Galvan MD on February 25, 2017 at 13:11 Board Certified Radiologist. This report was verified electronically.
[2017-03-03] MEDS ORDERED: HYDR-3516 PO (13:59)
== END 2017-02-25 10:40 | disposition home or self-care (01) ==
LOC: HRAD 08:29 → HRIP 08:30 → HRAD 10:40
PROVIDERS: ATTEND Obstetrics & Gynecology Gynecologic Oncology
DX: R18.8 Other ascites (principal)
CPT/HCPCS: 36415; 49083; 85025; 85610; 85730; C1729

== ENCOUNTER 2017-03-02 10:01 | Observation (INO) | payer OTHER ==
[2017-03-02 11:56] LABS: AUTOMATED NEUTROPHIL # 13.2 TH/MM3 (1.8-7.7); BASOPHIL % 0.1 % (0.0-2.0); EOSINOPHIL # 0.1 TH/MM3 (0-0.4); EOSINOPHIL % 0.5 % (0.0-4.0); HEMATOCRIT 35.1 % (35.0-46.0); HEMOGLOBIN 11.3 GM/DL (11.6-15.3); LYMPH % 10.7 % (9.0-44.0); LYMPHOCYTE # 1.8 TH/MM3 (1.0-4.8); MEAN CELL VOLUME 98.8 FL (80.0-100.0); MEAN CORPUSCULAR HEMOGLOBIN 31.8 PG (27.0-34.0); MEAN CORPUSCULAR HGB CONC 32.2 % (32.0-36.0); MEAN PLATELET VOLUME 7.4 FL (7.0-11.0); MONO % 10.2 % (0.0-8.0); MONOCYTE # 1.7 TH/MM3 (0-0.9); NEUT % 78.5 % (16.0-70.0); PLATELET COUNT 677 TH/MM3 (150-450); RED BLOOD COUNT 3.55 MIL/MM3 (4.00-5.30); RED CELL DISTRIBUTION WIDTH 17.9 % (11.6-17.2); WHITE BLOOD COUNT 16.7 TH/MM3 (4.0-11.0)
[2017-03-02 12:01] LABS: BILIRUBIN, URINE NEG (NEG); BLOOD, URINE NEG (NEG); COMMENT (UR) CULT NOT INDICATED; CULTURE IF INDICATED CULT NOT INDICATED; GLUCOSE,URINE NEG (NEG); KETONE, URINE NEG (NEG); MUCUS URINE MOD /lpf (OCC); NITRITE,URINE NEG (NEG); SQUAMOUS EPITHELIAL CELL URINE <1 /hpf (0-5); URINE COLOR YELLOW (YELLW/STRAW); URINE LEUKOCYTE ESTERASE NEG (NEG)
[2017-03-02 12:04] LABS: HEMO FLAGS AUTO DIFF
[2017-03-02 12:07] LABS: APTT (PATIENT) 29.9 SEC (24.3-30.1); PROTHROMBIN TIME - PATIENT 10.5 SEC (9.8-11.6)
[2017-03-02 12:11] LABS: ALBUMIN 1.8 GM/DL (3.4-5.0); ALT (GPT) 9 U/L (10-53); ANION GAP 11 MEQ/L (5-15); AST (GOT) 22 U/L (15-37); BICARBONATE 25.1 MEQ/L (21.0-32.0); BLOOD UREA NITROGEN 8 MG/DL (7-18); CALCIUM 8.2 MG/DL (8.5-10.1); CHLORIDE 101 MEQ/L (98-107); CREATININE 0.37 MG/DL (0.50-1.00); GLOMERULAR FILTRATION RATE 181 ML/MIN (>89); GLUCOSE,RANDOM 97 MG/DL (74-106); MAGNESIUM 1.7 MG/DL (1.5-2.5); POTASSIUM 3.4 MEQ/L (3.5-5.1); SODIUM (NA) 137 MEQ/L (136-145)
[2017-03-02 12:16] LABS: ALKALINE PHOSPHATASE 135 U/L (45-117); TOTAL BILIRUBIN ADULT 0.2 MG/DL (0.2-1.0); TOTAL PROTEIN 6.9 GM/DL (6.4-8.2); TROPONIN I LESS THAN 0.02 NG/ML (0.02-0.05)
[2017-03-02 12:17] LABS: CREATINE KINASE 43 U/L (26-192)
[2017-03-02] MEDS: ACETAMINOPHEN/HYDROcodone 325 MG/7.5 MG TAB PO (12:39)
[2017-03-02] MEDS: IOHEXOL 350 MG/ML 10 ML VIAL (for RAD DIAG) IVCONTRAST (13:00)
[2017-03-02 13:27] LABS: BANDS 5 % (0-6); EOSINOPHILS 1 % (0-4); LYMPHOCYTES 10 % (9-44); MONOCYTES 9 % (0-8); MYELOCYTES 2 % (0-0); NEUTROPHIL # MANUAL DIFF 13.4 TH/MM3 (1.8-7.7); POLYS (SEG NEUTROPHILS) 73 % (16-70); WBC DIFF SAMPLE 100
[2017-03-02 13:28] LABS: PLATELET ESTIMATE SMEAR HIGH (NORMAL); PLATELET MORPHOLOGY NORMAL (NORMAL); SCAN/DIFF FINAL DIFF MANUAL
[2017-03-02] MEDS ORDERED: ACETAMINOPHEN 325 MG TAB PO (14:30)
[2017-03-02] MEDS ORDERED: SODIUM CHLORIDE 0.9% FLUSH 10 ML FLUSH IV FLUSH (14:30)
[2017-03-02] MEDS ORDERED: ONDANSETRON HCL 4 MG/2 ML VIAL IVP (14:30)
[2017-03-02] MEDS ORDERED: NALOXONE HCL 0.4 MG/ML AMP IV PUSH (14:30)
[2017-03-02] MEDS ORDERED: MAGNESIUM HYDROXIDE SUSP 30 ML CUP PO (14:30)
[2017-03-02] MEDS: LIDOCAINE HCL 1% 20 ML VIAL (15:13)
[2017-03-02 15:30] LABS: LDH SERUM 438 U/L (84-246)
[2017-03-02] MEDS: HYDROmorphone HCL PF 2 MG/ML VIAL IV (16:19)
[2017-03-02 16:28] LABS: TOTAL PROTEIN,PLEURAL FLUID 4.5 GM/DL
[2017-03-02] MEDS ORDERED: RESP: ALBUTEROL 2.5 MG/IPRATROPIUM 0.5 MG NEB (PRN) NEB (16:45)
[2017-03-02 19:21] LABS: PLEURAL FLUID LYMPHS 81 %; PLEURAL FLUID MONOS 15 %; PLEURAL FLUID POLYS (SEGS) 4 %
[2017-03-02 19:22] LABS: PLEURAL FLUID RBC 10282 /MM3 (0-0); PLEURAL FLUID WBC 636 /MM3 (0-10)
[2017-03-02] MEDS: RESP: ALBUTEROL 2.5 MG/IPRATROPIUM 0.5 MG NEB (SCH) NEB (19:50)
[2017-03-02] MEDS: DOCUSATE SODIUM 50 MG/SENNA 8.6 MG TAB PO (21:00)
[2017-03-02] MEDS: SODIUM CHLORIDE 0.9% FLUSH 10 ML FLUSH IV FLUSH (21:00)
[2017-03-03 04:34] LABS: AUTOMATED NEUTROPHIL # 14.6 TH/MM3 (1.8-7.7); BASOPHIL % 0.1 % (0.0-2.0); EOSINOPHIL # 0.2 TH/MM3 (0-0.4); EOSINOPHIL % 0.9 % (0.0-4.0); HEMATOCRIT 31.2 % (35.0-46.0); HEMO FLAGS DIFF FINAL; HEMOGLOBIN 10.4 GM/DL (11.6-15.3); LYMPH % 7.9 % (9.0-44.0); LYMPHOCYTE # 1.4 TH/MM3 (1.0-4.8); MEAN CELL VOLUME 97.5 FL (80.0-100.0); MEAN CORPUSCULAR HEMOGLOBIN 32.4 PG (27.0-34.0); MEAN CORPUSCULAR HGB CONC 33.3 % (32.0-36.0); MEAN PLATELET VOLUME 7.2 FL (7.0-11.0); MONO % 8.7 % (0.0-8.0); MONOCYTE # 1.5 TH/MM3 (0-0.9); NEUT % 82.4 % (16.0-70.0); PLATELET COUNT 619 TH/MM3 (150-450); RED CELL DISTRIBUTION WIDTH 17.7 % (11.6-17.2); WHITE BLOOD COUNT 17.7 TH/MM3 (4.0-11.0)
[2017-03-03 04:57] LABS: ANION GAP 8 MEQ/L (5-15); BICARBONATE 25.8 MEQ/L (21.0-32.0); BLOOD UREA NITROGEN 5 MG/DL (7-18); CALCIUM 8.1 MG/DL (8.5-10.1); CHLORIDE 103 MEQ/L (98-107); GLOMERULAR FILTRATION RATE 231 ML/MIN (>89); GLUCOSE,RANDOM 96 MG/DL (74-106); POTASSIUM 3.8 MEQ/L (3.5-5.1); SODIUM (NA) 137 MEQ/L (136-145)
[2017-03-03] MEDS: ACETAMINOPHEN/HYDROcodone 325 MG/5 MG TAB PO ×3 (06:29→14:55)
[2017-03-03] MEDS: RESP: ALBUTEROL 2.5 MG/IPRATROPIUM 0.5 MG NEB (SCH) NEB ×2 (08:51→12:46)
[2017-03-03] MEDS: DOCUSATE SODIUM 50 MG/SENNA 8.6 MG TAB PO (09:00)
[2017-03-03] MEDS: SODIUM CHLORIDE 0.9% FLUSH 10 ML FLUSH IV FLUSH (10:48)
== END 2017-03-03 16:03 | disposition home or self-care (01) ==
LOC: NEPFCDU 03-03 07:31 → NEPC 10:01 → NEDA 13:49 → NEPFCDU 16:48
DX: J90 Pleural effusion, not elsewhere classified (principal); C56.2 Malignant neoplasm of left ovary; C56.1 Malignant neoplasm of right ovary; R59.9 Enlarged lymph nodes, unspecified; C79.51 Secondary malignant neoplasm of bone; C78.02 Secondary malignant neoplasm of left lung; C78.01 Secondary malignant neoplasm of right lung; C78.7 Secondary malignant neoplasm of liver and intrahepatic bile duct; R18.8 Other ascites; R42 Dizziness and giddiness; R53.83 Other fatigue; R07.89 Other chest pain; R10.9 Unspecified abdominal pain; F17.210 Nicotine dependence, cigarettes, uncomplicated; Z92.21 Personal history of antineoplastic chemotherapy
CPT/HCPCS: 32555; 71045; 71275; 80048; 80053; 81001; 82550; 83615; 83735; 84157; 84484; 85007; 85025; 85027; 85610; 85730; 87070; 87205; 88112; 88305; 89051; 94150; 94640; 94664; 96374; 99285-25

== ENCOUNTER 2017-03-13 11:23 | Day surgery (SDC) | payer OTHER ==
[~2017-03-13 11:23] MED LIST changes: -VITACAP7 PO
[2017-03-13 12:20] VITALS: BP 119/71; PULSE 90; RESP 14; TEMP 98; O2SAT 93
[2017-03-13 13:25] VITALS: BP 119/76; PULSE 91; RESP 17; O2SAT 97
--- NOTE | 2017-03-13 15:51 | RADRPT ---
EXAM DATE/TIME: 03/13/2017 12:16 [facility] COMPARISON: No previous studies available for comparison. INDICATIONS : Ascites. MEDICAL HISTORY : Ovarian cancer. Ascites. Pleural effusion. SURGICAL HISTORY : Chemotherapy. Paracentesis. Thoracentesis. ENCOUNTER: Subsequent ACUITY: 2 weeks PAIN SCORE: 5/10 LOCATION: Right lower quadrant FLUID: Total volume of 3200 cc of clear, red fluid was removed. Fluid was discarded. Paracentesis was therapeutic only. Post procedure scanning reveals no hematoma or other complication. TECHNIQUE: 1. Ultrasound guidance for abdominal paracentesis. 2. Paracentesis. The risks, benefits, and alternatives to ultrasound guided paracentesis were explained to the patient in detail including the risk of bleeding and infection. Written and verbal informed consent was obt ained. With the patient on the ultrasound table, ultrasound imaging was used to select the most appropriate approach for paracentesis. Overlying skin was prepped and draped in the usual sterile fashion and wi th a local anesthetic, a dermatotomy was made with an 11 blade scalpel. A 6 Arabic [id number]-U-dyaxrrhz ca theter was introduced into the peritoneal cavity and fluid was collected. The patient tolerated the procedure well and left the ultrasound suite in stable condition. CONCLUSION: Uncomplicated ultrasound guided paracentesis. Oscar Yin MD on March 13, 2017 at 15:48 Board Certified Radiologist. This report was verified electronically.
== END 2017-03-13 13:30 | disposition home or self-care (01) ==
LOC: HRAD 11:23 → HRIP 12:31 → HRAD 13:30
PROVIDERS: ATTEND Obstetrics & Gynecology Gynecologic Oncology
DX: R18.8 Other ascites (principal); C56.9 Malignant neoplasm of unspecified ovary
CPT/HCPCS: 49083; C1729

== ENCOUNTER 2017-03-23 10:04 | Day surgery (SDC) | payer OTHER ==
[2017-03-23 10:34] VITALS: BP 117/81; PULSE 113; RESP 20; TEMP 97.7; O2SAT 98
--- NOTE | 2017-03-23 11:14 | RADRPT ---
EXAM DATE/TIME: 03/23/2017 10:34 [facility] COMPARISON: EXTERNAL COMPARISON: US GUIDED ABD PARACENTESIS, March 13, 2017, 12:16[facility], CT Abdomen, Mar 14 2016 INDICATIONS : Ascites. MEDICAL HISTORY : Ovarian cancer. Ascites. Pleural effusion. Chemotherapy. SURGICAL HISTORY : Paracentesis. Thoracentesis. ENCOUNTER: Subsequent ACUITY: 2 weeks PAIN SCORE: 4/10 LOCATION: Right lower quadrant FLUID: Total volume of 2800 cc of clear, red fluid was removed. Fluid was discarded. Paracentesis was therapeutic only. Post procedure scanning reveals no hematoma or other complication. TECHNIQUE: 1. Ultrasound guidance for abdominal paracentesis. 2. Paracentesis. The risks, benefits, and alternatives to ultrasound guided paracentesis were explained to the patient in detail including the risk of bleeding and infection. Written and verbal informed consent was obt ained. With the patient on the ultrasound table, ultrasound imaging was used to select the most appropriate approach for paracentesis. Overlying skin was prepped and draped in the usual sterile fashion and wi th a local anesthetic, a dermatotomy was made with an 11 blade scalpel. A 6 Syriac Gcq-W-tsakxame ca theter was introduced into the peritoneal cavity and fluid was collected. The patient tolerated the procedure well and left the ultrasound suite in stable condition. CONCLUSION: Uncomplicated ultrasound guided paracentesis. Juve Hanson MD on March 23, 2017 at 11:11 Board Certified Radiologist. This report was verified electronically.
[2017-03-23 11:17] VITALS: BP 124/75; PULSE 111; RESP 20; TEMP 98.6; O2SAT 96
[2017-03-23 11:30] VITALS: BP 113/71; PULSE 109; RESP 20; O2SAT 97
[2017-03-23] MEDS ORDERED: LIDOCAINE HCL 1% 20 ML VIAL ONE (11:47)
== END 2017-03-23 11:45 | disposition home or self-care (01) ==
LOC: HRAD 10:04 → HRIP 10:10 → HRAD 11:45
PROVIDERS: ATTEND Obstetrics & Gynecology Gynecologic Oncology
DX: R18.8 Other ascites (principal); J90 Pleural effusion, not elsewhere classified; C56.9 Malignant neoplasm of unspecified ovary
CPT/HCPCS: 49083; C1729

== ENCOUNTER 2017-03-31 09:52 | Day surgery (SDC) | payer OTHER ==
[2017-03-31 12:19] VITALS: BP 113/75; PULSE 101; RESP 18; TEMP 98.3; O2SAT 94
[2017-03-31] MEDS ORDERED: LIDOCAINE HCL 1% 20 ML VIAL ONE (12:24)
[2017-03-31 12:35] VITALS: BP 117/79; PULSE 100; RESP 18; O2SAT 92
--- NOTE | 2017-03-31 14:22 | RADRPT ---
EXAM DATE/TIME: 03/31/2017 10:43 [facility] COMPARISON: EXTERNAL COMPARISON: US GUIDED ABD PARACENTESIS, March 23, 2017, 10:34. [facility], PET/CT TUMOR, Feb 19 2017, [facility], CT abdomen and pelvis with contrast, mar. INDICATIONS : Ascites. MEDICAL HISTORY : Ovarian cancer. Ascites. Pleural effusion. Chemotherapy. SURGICAL HISTORY : Paracentesis. Thoracentesis. ENCOUNTER: Subsequent ACUITY: 1 week PAIN SCORE: 10/10 LOCATION: Right lower quadrant FLUID: Total volume of 2,300 cc of clear, red fluid was removed. Fluid was discarded. Paracentesis was therapeutic only. Post procedure scanning reveals no hematoma or other complication. TECHNIQUE: 1. Ultrasound guidance for abdominal paracentesis. 2. Paracentesis. The risks, benefits, and alternatives to ultrasound guided paracentesis were explained to the patient in detail including the risk of bleeding and infection. Written and verbal informed consent was obt ained. With the patient on the ultrasound table, ultrasound imaging was used to select the most appropriate approach for paracentesis. Overlying skin was prepped and draped in the usual sterile fashion and wi th a local anesthetic, a dermatotomy was made with an 11 blade scalpel. A 6 Turkmen Hug-W-wyifleuj ca theter was introduced into the peritoneal cavity and fluid was collected. The patient tolerated the procedure well and left the ultrasound suite in stable condition. CONCLUSION: Uncomplicated ultrasound guided paracentesis. Niranjan Escobar MD on March 31, 2017 at 14:21 Board Certified Radiologist. This report was verified electronically.
== END 2017-03-31 12:39 | disposition home or self-care (01) ==
LOC: HRAD 09:52 → HRIP 10:00 → HRAD 12:39
PROVIDERS: ATTEND Obstetrics & Gynecology Gynecologic Oncology
DX: R18.8 Other ascites (principal); Z85.43 Personal history of malignant neoplasm of ovary; J90 Pleural effusion, not elsewhere classified
CPT/HCPCS: 49083; C1729

== ENCOUNTER 2017-04-09 07:46 | Day surgery (SDC) | payer OTHER ==
[2017-04-09 08:15] VITALS: BP 120/60; PULSE 105; RESP 14; TEMP 99; O2SAT 99
[2017-04-09 09:30] VITALS: BP 106/70; PULSE 103; RESP 20; TEMP 98.2; O2SAT 95
[2017-04-09 09:45] VITALS: BP 106/70; PULSE 106; RESP 20; O2SAT 94
[2017-04-09] MEDS ORDERED: LIDOCAINE HCL 1% 20 ML VIAL ONE (11:24)
--- NOTE | 2017-04-09 16:29 | RADRPT ---
EXAM DATE/TIME: 04/09/2017 08:24 [facility] COMPARISON: No previous studies available for comparison. INDICATIONS : Ascites. MEDICAL HISTORY : Ovarian cancer. Ascites. Pleural effusion. Chemotherapy. SURGICAL HISTORY : Paracentesis. Thoracentesis. ENCOUNTER: Subsequent ACUITY: 3 weeks PAIN SCORE: 0/10 LOCATION: Right lower quadrant FLUID: Total volume of 2,200 cc of cloudy, red fluid was removed. Fluid was discarded. Paracentesis was therapeutic only. Post procedure scanning reveals no hematoma or other complication. TECHNIQUE: 1. Ultrasound guidance for abdominal paracentesis. 2. Paracentesis. The risks, benefits, and alternatives to ultrasound guided paracentesis were explained to the patient in detail including the risk of bleeding and infection. Written and verbal informed consent was obt ained. With the patient on the ultrasound table, ultrasound imaging was used to select the most appropriate approach for paracentesis. Overlying skin was prepped and draped in the usual sterile fashion and wi th a local anesthetic, a dermatotomy was made with an 11 blade scalpel. A 6 Bulgarian Iho-O-opvllkas ca theter was introduced into the peritoneal cavity and fluid was collected. The patient tolerated the procedure well and left the ultrasound suite in stable condition. CONCLUSION: Uncomplicated ultrasound guided paracentesis. Oscar Yin MD on April 09, 2017 at 16:28 Board Certified Radiologist. This report was verified electronically.
== END 2017-04-09 10:00 | disposition home or self-care (01) ==
LOC: HRIP 07:46 → HRAD 07:46
PROVIDERS: ATTEND Obstetrics & Gynecology Gynecologic Oncology
DX: R18.8 Other ascites (principal)
CPT/HCPCS: 49083; C1729